=== PATIENT | male | born 1980 | race Caucasian/White ===

== ENCOUNTER 2021-06-27 09:10 | Outpatient (CLI) | payer OTHER, MEDICAID, SELFPAY ==
--- NOTE | ~2021-06-27 | MR_ITS ---
EXAMINATION: MR knee LT wo con DATE: 06/27/2021 09:43 INDICATION: Left knee pain TECHNIQUE: Magnetic resonance imaging (MRI) of the left knee was performed without intravenous contra st. Sequences included coronal PD-weighted FSE, coronal PD-weighted FS FSE, sagittal T2-weighted FSE , sagittal PD-weighted FS FSE and axial PD weighted fat saturated FSE. COMPARISON: None. FINDINGS: Medial compartment: Longitudinal horizontal tear extending to the articular surface near the free edge of the posterior b alex and posterior horn of the medial meniscus. Articular cartilage is normal. Lateral compartment: Lateral meniscus is normal. Articular cartilage is normal. Patellofemoral compartment: Partial-thickness chondral fissure involving slightly greater than 50% of the cartilage thickness at the central aspect of the medial patellar facet. Additional deep chondral fissuring with mild underly ing cortical irregularity at the inferior aspect of the medial trochlea. Chondral swelling and additi onal partial thickness chondral fissuring without degenerative subchondral changes at the inferior as pect of the trochlear groove. Ligaments and tendons: Anterior and posterior cruciate ligaments are normal. The medial collateral ligament and fibular frank ateral ligament complex are normal. Mild distal quadriceps tendinopathy. The patellar tendon is sangita l. The visualized medial and lateral hamstring tendons as well as the iliotibial band are normal. Fluid: Physiologic amount of fluid in the joint space. No loose osteochondral bodies identified. Osseous/other: Normal marrow signal. No fracture or pathologic marrow replacing process. IMPRESSION: 1. Longitudinal horizontal medial meniscal tear. 2. 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 3. Mild distal quadriceps tendinopathy. Reviewed, dictated and finalized at location B. IMPRESSION: 1. Longitudinal horizontal medial meniscal tear. 2. 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 3. Mild distal quadriceps tendinopathy.
== END 2021-06-27 09:11 ==
PROVIDERS: PCP Family Medicine; Visit Provider Nurse Practitioner Family
DX: M17.12 Unilateral primary osteoarthritis, left knee (principal); S83.242A Other tear of medial meniscus, current injury, left knee, initial encounter
CPT/HCPCS: 73721

== ENCOUNTER 2021-09-03 00:15 | Day surgery (SDC) | payer OTHER, MEDICAID, SELFPAY ==
[2021-08-30 10:40] VITALS: BMI 30.5
--- NOTE | 2021-08-30 10:52 | PC.NURSE ---
Report to the Outpatient Waiting Room, entrance under the green pavilion located off [facility], at time ___0600____ on date __09/03/21 . OR Time: ____729___. - You and your visitor will be asked a series of questions to screen for COVID 19 for your protection. - Only one visitor is allowed at this time. - The patient visitor is requested to leave or wait in car when not with patient. - A mask is required within the hospital. Patients may have clear liquids (water, carbonated beverages, clear teas, apple juice) until 3 hours prior to surgery with a maximum of 20 ounces. - No food from midnight until time of surgery - Infants may have breast milk until 4 hours before surgery, infant formula 6 hours prior to surgery. - Children will be allowed to drink immediately following surgery. If applicable, please bring a bottle or sippy cup to assist with drinking. Juice, water, soda, and popsicles are readily available. For infants on formula, please bring formula the day of surgery. Pacifiers are allowed. Take the following medications with a SIP of water the morning of surgery: NONE Medications to discontinue per physician N/A Date to take last dose Please no make-up, nail belgian, hairspray, perfume, deodorant, or body powder the day of surgery. No jewelry (including any body piercings) or valuables the day of surgery, leave them at home. Please take a shower or bath the night before, or the morning of, surgery with an antibacterial soap. Wear comfortable, loose fitting clothing. Children are encouraged to wear pajamas. - Jewelry must be removed prior to entering the operating room. Rings and piercings that are not removed may be cut off. - The hospital will not accept responsibility for valuables. - Please leave all valuables, including medications, at home the day of surgery. If you are going home after surgery, a licensed straddle bug driver must drive you home. - NO public transportation without another adult. - We recommend that an adult stay with you for 24 hours following discharge. - We also recommend that you do not drive, make important decision, drink alcoholic beverages, or take any drugs that were not prescribed by your health care provider for at least 24 hours after your discharge time. For Pediatric surgeries, we recommend two adults accompany the child home (only one inside the building at this time). Follow any additional instructions given to you from your surgeon. If you or anyone in your household have experienced Covid symptoms in the past week, please notify your surgeon or the nurse liaison at the phone number below for possible testing. Telephone instructions given to ____PT and asked if any additional questions and then verbalized understanding. Patient advised to call surgeon office or pre surgery nurse liaison [phone] if any additional questions.
[2021-09-03] VITALS (8 sets, daily range): BP systolic 106–141; BP diastolic 68–111; PULSE 61–101; RESP 13–16; TEMP 36.4; O2SAT 95–99
--- NOTE | 2021-09-03 05:49 | ECG_ITS ---
Measurements Intervals [place] Rate: 74 P: 48 [place]: 160 QRS: 52 QRSD: 116 T: 38 QT: 378 QTc: 421 Interpretive Statements SINUS RHYTHM INTRAVENTRICULAR CONDUCTION DELAY BASELINE ARTIFACT- V1 BORDERLINE ECG Electronically Signed On 09-03-2021 8:01:37 CDT by Prashant Benson D.O.
[2021-09-03] MEDS: LACTATED RINGERS 1,000 ML 30 ML IV CONT (06:30)
[2021-09-03] MEDS: ACETAMINOPHEN 500 MG TABLET 1000 MG PO (06:33)
[2021-09-03] MEDS: KETOROLAC 15 MG/ML VIAL (*BKC) IV PUSH (06:33)
--- NOTE | 2021-09-03 07:06 | P.PNAN_ITS ---
Anes - Initial Pre Proc Eval Procedure: Operation Date: 09/03/21 07:30 Proposed Procedures p Left Knee Arthroscopy with Medial Meniscectomy - Chaparro Medina MD Date/Time: 09/03/21 07:06 Surgeon: Chaparro Medina MD Pre Op Diagnosis: left knee medial meniscus tear Patient Data Age: 41 Gender: M Height: 1.83 m Weight: 104.5 kg Last Vital Signs Temp 97.6 F 09/03/21 06:13 Pulse 79 09/03/21 06:39 Resp 16 09/03/21 06:13 BP 134/82 09/03/21 06:39 Pulse Ox 99 09/03/21 06:13 O2 Del Method Room Air 09/03/21 06:13 Allergies Allergy/AdvReac Type Severity Reaction Status Date / Time No Known Allergies Allergy Verified 09/03/21 06:15 Home Medications Medication Instructions Recorded Confirmed Type losartan 25 mg tablet 25 mg PO QAM 08/21/21 09/03/21 History meloxicam 15 mg tablet 7.5 mg PO QAM 08/21/21 09/03/21 History montelukast 10 mg tablet 1 tablet DAILY PRN SEASONAL 08/30/21 09/03/21 History ALLERGIES omeprazole 40 mg capsule,delayed 1 cap QAM 08/30/21 09/03/21 History release Patient hx anesthesia problems: none Family hx anesthesia problems: none Results Review: All pre-operative results and documents have been reviewed as part of the pre- operative evaluation. [facility] Past Medical History Medical History Anxiety Arthritis Surgical History Surgical History History of bilateral carpal tunnel release Family History Family History Father Heart disease Mother Hypertension Depression Cerebrovascular accident Social History Social History Smoking packs per day: 1 Smoking cigarettes per day: 20.0 Years smoked: 26 Smoking pack-years: 26.00 Smoking status: Current every day smoker Tobacco type: cigarettes Smokeless tobacco user: chewing tobacco Second hand tobacco smoke exposure: Yes Alcohol intake: current Alcohol use details: STATES MAYBE 2/MONTH Substance use: current Substance use type: marijuana Other substance usage details: DAILY USEAGE HITTERS - 1GM/3-5 DAYS Living arrangements: with family Additional living arrangements comments: SON/DAUGHTER AND THEIR CHILDREN LIVES WITH PT 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 Informed Consent: The patient's anesthetic plan and its attendant risks and benefits were discussed with the patient/family/POA. Questions were solicited and answers provided to the satis
--- NOTE | 2021-09-03 07:15 | WPDHPUPDATE1 ---
History and Physical Update Update Date/Time: 09/03/21 07:15 History and Physical has been reviewed, including an updated exam of the patient. There are NO changes in the patient's condition. Risks, benefits, and alternatives have been discussed and questions answered. Patient agrees to proceed with procedure which is left knee arthroscopy with meniscectomy..
[2021-09-03] MEDS: ceFAZolin 2 GM/D5W 50 ML 2 GM/50 ML BAG IVPB (07:27)
--- NOTE | 2021-09-03 08:47 | P.OP_ITS ---
Procedure Note - Detailed Date of Procedure 09/03/21 Pre-op Diagnosis left knee medial meniscus tear Post-op Diagnosis Same Procedure Performed Left knee arthroscopy with partial medial meniscectomy Surgeon Chaparro Medina MD Description of Procedure The patient was identified and proper site identified. He was taken to the operating room, transferred to the OR table placing him supine taking care to pad the torso and extremities. After general anesthetic induction and intubation, a nonsterile tourniquet was placed high on the left thigh but was not used The left lower extremity was positioned, prepped and draped in usual sterile fashion. 10 cc of 1% lidocaine was injected into the subcutaneous tissue in the area of the portals at start of the procedure, and an additional 10 at the end. The portals were established and the arthroscopy was carried out. Articular cartilage in the anterior lateral compartments was in excellent condition. Medially there was slight fraying of the articular surface. Complex tearing of the posterior horn of the medial meniscus extending into the midbody with an unstable flap was noted. This was contoured back to a stable rim with basket forceps and a shaver. Anterior and posterior cruciate ligaments were in continuity. Pouch and gutters were clear. ArthroCare Wand was used for intra- articular hemostasis. The knee was flushed with a copious amount of arthroscopic fluid and equipment was removed. Portals were closed with three O nylon suture and a sterile dressing was applied. He tolerated the procedure well, was awakened, extubated and taken to recovery area in stable condition. There were no known intraoperative complications. Estimated blood loss was negligible; he received perioperative antibiotics. Estimated Blood Loss -5.0 Tourniquet Time 0 Drains No Packing No Pathology None sent Complications No immediate complications Condition Stable Disposition PACU
== END 2021-09-03 09:52 | disposition home or self-care (01) ==
PROVIDERS: PCP Family Medicine; Visit Provider Orthopaedic Surgery
PROC: (CPT 29870; principal; 2021-09-03 07:30)
DX: S83.232A Complex tear of medial meniscus, current injury, left knee, initial encounter (principal); X50.0XXA Overexertion from strenuous movement or load, initial encounter; F17.210 Nicotine dependence, cigarettes, uncomplicated; F17.220 Nicotine dependence, chewing tobacco, uncomplicated; E66.9 Obesity, unspecified; Z68.31 Body mass index [BMI] 31.0-31.9, adult
CPT/HCPCS: 29881; 93005; A9270; J0690; J1100; J1885; J2250; J2405; J2704; J3010; J7120

== ENCOUNTER 2023-06-26 15:13 | Day surgery (SDC) | payer OTHER, SELFPAY ==
[2023-06-26] VITALS (8 sets, daily range): BP systolic 123–169; BP diastolic 73–98; PULSE 73–105; RESP 16–22; TEMP 36.1–36.9; O2SAT 96–100
--- NOTE | 2023-06-26 15:48 | ED.MALEGU ---
HPI - Male Genitourinary General Chief complaint: Urogenital-Male <Soniya Radford PA-C - Last Filed: 06/26/23 17:09> Stated complaint: testicle injury <Soniya Radford PA-C - Last Filed: 06/26/23 17:09> Time Seen by Provider: 06/26/23 15:29 <GUANAKO Cortez Last Filed: 06/26/23 17:09> Source: patient <GUANAKO Cortez Last Filed: 06/26/23 17:09> Mode of arrival: ambulatory <GUANAKO Cortez Last Filed: 06/26/23 17:09> Limitations: no limitations <GUANAKO Cortez Last Filed: 06/26/23 17:09> History of Present Illness HPI Narrative: Patient is a 43-year-old male who presents the ED with report of testicular injury. Patient reports he was hit by a baseball in his right testicle on Thursday night. He states it was a pitch from a pitching machine that hit the ground and bounced up, hitting directly into his right testicle. States his testicle was hidden up in his scrotum for several hours. He has had pain and swelling in his R testicle since then. Worse with walking, moving. Saw his PCP today and had an outpatient US performed which showed a testicular fracture. PCP spoke to Urology and referred patient here for further evaluation. Patient took hydrocodone prior to arrival. States he last ate around 5am this morning, toast. Denies difficulty urinating, hematuria, abdominal pain. He has had some nausea associated with pain. Denies vomiting. Denies fever. <GUANAKO Cortez Last Filed: 06/26/23 17:09> Related Data Home medications: Home Medications Medication Instructions Recorded Confirmed losartan 25 mg tablet 25 mg PO QAM 08/21/21 09/18/21 meloxicam 15 mg tablet 7.5 mg PO QAM 08/21/21 09/18/21 montelukast 10 mg tablet 1 tablet DAILY PRN SEASONAL 08/30/21 09/18/21 ALLERGIES omeprazole 40 mg capsule,delayed 1 cap QAM 08/30/21 09/18/21 release <GUANAKO Cortez Last Filed: 06/26/23 17:09> Allergies/Adverse reactions: Allergies Allergy/AdvReac Type Severity Reaction Status Date / Time No Known Allergies Allergy Verified 06/26/23 15:20 <Soniya Radford PA-C - Last Filed: 06/26/23 17:09> Review of Systems Review of Systems: CONSTITUTIONAL: Denies fever, chills, or sweats. GASTROINTESTINAL: Denies abdominal pain, nausea, vomiting, or diarrhea. GENITOURINARY: See HPI. NEUROLOGIC: Denies headache, dizziness, numbness, or weakness. <GUANAKO Cortez Last Filed: 06/26/23 17:09> All systems reviewed & are unremarkable except as noted in HPI and below <GUANAKO Cortez Last Filed: 06/26/23 17:09> [facility] Past Medical History Medical History: Medical History (Updated 06/26/23 @ 17:01 by Robles Ashton DO) Anxiety Arthritis Hypertension <GUANAKO Cortez Last Filed: 06/26/23 17:09> Surgical History Surgical History: Surgical History History of bilateral carpal tunnel release Tear of meniscus of left knee Left knee arthroscopy and meniscectomy September 03, 2021 <GUANAKO Cortez Last Filed: 06/26/23 17:09> Family History Family History: Family History Father Heart disease Mother Hypertension Depression Cerebrovascular accident <GUANAKO Cortez Last Filed: 06/26/23 17:09> Social History Social History: Social History Smoking packs per day: 1 Smoking cigarettes per day: 20.0 Years smoked: 26 Smoking pack-years: 26.00 Smoking status: Current every day smoker Tobacco type: cigarettes Smokeless tobacco user: chewing tobacco Second hand tobacco smoke exposure: Yes Alcohol intake: current Alcohol use details: STATES MAYBE 2/MONTH Substance use: current Substance use type: marijuana
--- NOTE | 2023-06-26 16:26 | PC.NURSE ---
Ice pack provided per pt request
--- NOTE | 2023-06-26 16:43 | P.PNAN_ITS ---
Anes - Eval Pre Procedure Procedure: Operation Date: 06/26/23 17:00 Proposed Procedures p Scrotal Exploration(Right) - Sterling Lentz MD Date/Time: 06/26/23 16:43 Pre Op Diagnosis: testicle injury Patient Data Age: 43 Gender: M Height: 1.78 m Weight: 113 kg Last Vital Signs Temp 36.9 C 06/26/23 15:14 Pulse 79 06/26/23 16:25 Resp 16 06/26/23 16:25 BP 123/73 06/26/23 16:25 Pulse Ox 99 06/26/23 16:25 Allergies Allergy/AdvReac Type Severity Reaction Status Date / Time No Known Allergies Allergy Verified 06/26/23 15:20 Home Medications Medication Instructions Recorded Confirmed Type losartan 25 mg tablet 25 mg PO QAM 08/21/21 09/18/21 History meloxicam 15 mg tablet 7.5 mg PO QAM 08/21/21 09/18/21 History montelukast 10 mg tablet 1 tablet DAILY PRN SEASONAL 08/30/21 09/18/21 History ALLERGIES omeprazole 40 mg capsule,delayed 1 cap QAM 08/30/21 09/18/21 History release Patient hx anesthesia problems: none Family hx anesthesia problems: none Results Review: All pre-operative results and documents have been reviewed as part of the pre- operative evaluation. [facility] Past Medical History Medical History Anxiety Arthritis Surgical History Surgical History History of bilateral carpal tunnel release Tear of meniscus of left knee Left knee arthroscopy and meniscectomy September 03, 2021 Family History Family History Father Heart disease Mother Hypertension Depression Cerebrovascular accident Social History Social History Smoking packs per day: 1 Smoking cigarettes per day: 20.0 Years smoked: 26 Smoking pack-years: 26.00 Smoking status: Current every day smoker Tobacco type: cigarettes Smokeless tobacco user: chewing tobacco Second hand tobacco smoke exposure: Yes Alcohol intake: current Alcohol use details: STATES MAYBE 2/MONTH Substance use: current Substance use type: marijuana Other substance usage details: DAILY USEAGE HITTERS - 1GM/3-5 DAYS Living arrangements: with family Additional living arrangements comments: SON/DAUGHTER AND THEIR CHILDREN LIVES WITH PT Occupation/Education: 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
--- NOTE | 2023-06-26 16:55 | WPDURCON ---
Assessment and Plan Assessment and plan (1) Testicular fracture: Qualifiers: Encounter type: initial encounter Qualified Code(s): S31.30XA - Unspecified open wound of scrotum and testes, initial encounter Code(s): S31.30XA - Unspecified open wound of scrotum and testes, initial encounter Status: Acute Plan 43-year-old man with right testicular injury, exam and ultrasound concerning for RIGHT testicular rupture --I discussed with patient, risks benefits alternatives discussed. As there is suspected right testicular rupture, the patient will be taken to the operating for scrotal exploration, debridement and repair of injury, orchiectomy if necessary. The patient understands possibility of a negative exploration. The patient understands risk of infection, bleeding, pain, need for future intervention. Patient agrees to proceed with procedure today. Urology Consult Note HPI Date Seen: 06/26/23 Primary Care Provider: Shaina Huerta MD Consult Narrative Narrative: Higinio Sandoval is a 43 year old male who reports he was hit by a baseball in his right testicle on Thursday night.? He states it was a pitch from a pitching machine that hit the ground and bounced up, hitting directly into his right testicle.? Patient states he has had significant and worsening right-sided testicular pain over the last 2 days. He went to the primary care office today due to increased discomfort inability to ambulate due to pain. The patient was sent for a scrotal ultrasound that revealed findings concerning for testicular rupture. The patient sent to the ER for evaluation. [facility], [facility] Past Medical History Medical History Anxiety Arthritis Surgical History Surgical History History of bilateral carpal tunnel release Tear of meniscus of left knee Left knee arthroscopy and meniscectomy September 03, 2021 Family History Family History Father Heart disease Mother Hypertension Depression Cerebrovascular accident Social History Social History Smoking packs per day: 1 Smoking cigarettes per day: 20.0 Years smoked: 26 Smoking pack-years: 26.00 Smoking status: Current every day smoker Tobacco type: cigarettes Smokeless tobacco user: chewing tobacco Second hand tobacco smoke exposure: Yes Alcohol intake: current Alcohol use details: STATES MAYBE 2/MONTH Substance use: current Substance use type: marijuana Other substance usage details: DAILY USEAGE HITTERS - 1GM/3-5 DAYS Living arrangements: with family Additional living arrangements comments: SON/DAUGHTER AND THEIR CHILDREN LIVES WITH PT Occupation/Education: occupation 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 Gender identity (if verbalized by the patient): Male Spiritual care concerns: No Meds Home Medications and Allergies Home Medications Medication Instructions Recorded Confirmed Type losartan 25 mg tablet 25 mg PO QAM 08/21/21 09/18/21 History meloxicam 15 mg tablet 7.5 mg PO QAM 08/21/21 09/18/21 History montelukast 10 mg tablet 1 tablet DAILY PRN SEASONAL 08/30/21 09/18/21 History ALLERGIES omeprazole 40 mg capsule,delayed 1 cap QAM 08/30/21 09/18/21 History release Allergies Allergy/AdvReac Type Severity Reaction Status Date / Time No Known Allergies Allergy Verified 06/26/23 15:20 Vital Signs Vital Signs - 24 hr 06/26/23 15:14 06/26/23 16:25 Temperature 36.9 C Pulse Rate 89 79 Respiratory Rate 16 16 Blood Pressure 131/76 123/73 Pulse Oximetry 98 99 Exam Narrative: The patient is awake alert. He is in mild distress. His abdomen is soft nontender nondistended. His breathing is unlabored. exam: Bilateral descended testicles which are nor
--- NOTE | 2023-06-26 17:00 | WPDHPUPDATE1 ---
History and Physical Update Update Date/Time: 06/26/23 17:00 History and Physical has been reviewed, including an updated exam of the patient. There are NO changes in the patient's condition. Risks, benefits, and alternatives have been discussed and questions answered. Patient agrees to proceed with procedure.
--- NOTE | 2023-06-26 17:01 | WPDANESEPPF ---
Anes - Initial Pre Proc Eval Procedure: Operation Date: 06/26/23 17:00 Proposed Procedures p Scrotal Exploration(Right) - Sterling Lentz MD Date/Time: 06/26/23 17:01 Pre Op Diagnosis: testicle injury Patient Data Age: 43 Gender: M Height: 1.78 m Weight: 113 kg Last Vital Signs Temp 36.9 C 06/26/23 15:14 Pulse 79 06/26/23 16:25 Resp 16 06/26/23 16:25 BP 123/73 06/26/23 16:25 Pulse Ox 99 06/26/23 16:25 Allergies Allergy/AdvReac Type Severity Reaction Status Date / Time No Known Allergies Allergy Verified 06/26/23 15:20 Home Medications Medication Instructions Recorded Confirmed Type losartan 25 mg tablet 25 mg PO QA 08/21/21 09/18/21 History meloxicam 15 mg tablet 7.5 mg PO QA 08/21/21 09/18/21 History montelukast 10 mg tablet 1 tablet DAILY PRN SEASONAL 08/30/21 09/18/21 History ALLERGIES omeprazole 40 mg capsule,delayed 1 cap QA 08/30/21 09/18/21 History release hydrocodone 5 mg-acetaminophen 325 1 tablet PO Q6H PRN pain #25 tabs 06/26/23 Rx mg tablet sulfamethoxazole 800 1 tablet PO Q12H 5 days #10 tabs 06/26/23 Rx mg-trimethoprim 160 mg tablet (Bactrim DS) Patient hx anesthesia problems: none Family hx anesthesia problems: none Results Review: All pre-operative results and documents have been reviewed as part of the pre-operative evaluation. [facility] Past Medical History Medical History (Updated 06/26/23 @ 17:01 by Robles Ashton DO) Anxiety Arthritis Hypertension Surgical History Surgical History History of bilateral carpal tunnel release Tear of meniscus of left knee Left knee arthroscopy and meniscectomy September 03, 2021 Family History Family History Father Heart disease Mother Hypertension Depression Cerebrovascular accident Social History Social History Smoking packs per day: 1 Smoking cigarettes per day: 20.0 Years smoked: 26 Smoking pack-years: 26.00 Smoking status: Current every day smoker Tobacco type: cigarettes Smokeless tobacco user: chewing tobacco Second hand tobacco smoke exposure: Yes Alcohol intake: current Alcohol use details: STATES MAYBE 2/MONTH Substance use: current Substance use type: marijuana Other substance usage details: DAILY USEAGE HITTERS - 1GM/3-5 DAYS Living arrangements: with family Additional living arrangements comments: SON/DAUGHTER AND THEIR CHILDREN LIVES WITH PT Occupation/Education: occupation 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 Informed Consent: The patient's anesthetic plan and its attendant risks and benefits were discussed with the patient/family/POA. Questions were solicited and answers provided to the satisfaction of the patient/family/POA.
[2023-06-26] MEDS: ceFAZolin 2 GM/D5W 50 ML 2 GM/50 ML BAG IVPB (17:20)
[2023-06-26] MEDS: BUPIVACAINE/EPINEPHRINE 0.5% 30 ML VIAL INFILTRATE (17:40)
--- NOTE | 2023-06-26 18:23 | P.OP_ITS ---
Procedure Note - Detailed Date of Procedure 06/26/23 Pre-op Diagnosis testicle injury Post-op Diagnosis Same Procedure Performed Scrotal exploration, right testicular debridement with hematoma evacuation, repair of testicular Surgeon Sterling Lentz MD Anesthesia General Findings 2.5cm rupture of the inferior aspect of the testicular tunica albuginea Description of Procedure Informed consent was obtained. Patient taken the operating. Given preoperative IV antibiotics. He was induced anesthesia. He was shaved is prepped draped normal sterile fashion. A midline scrotal raphe incision was performed. We then dissected down to the right hemiscrotum where a large hematoma was present. Small bleeding sites were cauterized. We then opened the tunica vaginalis to reveal the testicle and epididymis. The epididymis itself looked healthy. There was a 4cm hematoma adjacent to the inferior aspect of the testicle the hematoma capsule was opened and blood product of agitated. Once the hematoma was cleared we identified a 2.5cm rupture the inferior aspect of the tunica albuginea. We ensured to remove all blood product and then irrigated copiously. We ensured to remove all blood products until we came to viable appearing seminiferous tubules, approximately 1/3 of the testicular volume had been evacuated. We then closed the tunica albuginea with 4-0 Prolene suture. The testicle at this point appeared viable. We again irrigated copiously. We c losed the tunica vaginalis with 2-0 Vicryl suture. The testicle returned to its orthotopic position. We closed the dartos with 3-0 Vicryl suture and skin with 3-0 chromic suture. A compressive dressing was placed. Patient taken recovery room in stable condition Complications No immediate complications Condition Stable Disposition PACU
[2023-06-26] MEDS: LACTATED RINGERS 1,000 ML 30 ML IV CONT (18:28)
[2023-06-26] MEDS: oxyCODONE HCL (*CRX) 5 MG TAB IR PO (19:19)
--- NOTE | 2023-06-26 19:20 | SUR.PHASEII ---
1909 PT C/O BITE TO LOWER LIP, SWELLING WITH SMALL LACERATION NOTED. NO ACTIVE BLEEDING NOTED. PT APPLYING ICE CHIPS TO INNER LIP. ANESTH. MADE AWARE.
== END 2023-06-26 19:50 | disposition home or self-care (01) ==
LOC: ANHED 16:41 → ANHSURGERY 17:05
PROVIDERS: Emergency Provider Physician Assistant; PCP Family Medicine; Visit Provider Urology
PROC: (CPT 55110; principal; 2023-06-26 17:00)
DX: S39.848A Other specified injuries of external genitals, initial encounter (principal); W21.03XA Struck by baseball, initial encounter; I10 Essential (primary) hypertension; F17.210 Nicotine dependence, cigarettes, uncomplicated; F17.220 Nicotine dependence, chewing tobacco, uncomplicated; F12.90 Cannabis use, unspecified, uncomplicated; E66.9 Obesity, unspecified; Z68.35 Body mass index [BMI] 35.0-35.9, adult
CPT/HCPCS: 54670; 99285; A9270; J0690; J2250; J2270; J2405; J2704; J7120